=== PATIENT | female | born 1950 | race Caucasian/White ===

== ENCOUNTER 2025-06-14 14:08 | Emergency (ER) | payer OTHER, MEDICAID ==
[~2025-06-14] VITALS: Ht 157.5 cm; Wt 75.0 kg
[2025-06-14 14:15] VITALS: O2SAT 96
[2025-06-14] MEDS: FAMOTIDINE 20MG/2ML VIAL IV ONE (15:07)
[2025-06-14] MEDS: ONDANSETRON HCL 4MG/2ML INJ IV ONE (15:08)
[2025-06-14] MEDS: MAGNESIUM HYDROXIDE 400MG/5ML 30ML UDC PO ONE (15:08)
[2025-06-14] MEDS: SODIUM CHLORIDE 0.9% 1,000 ML IV ONE (15:08)
[2025-06-14 15:27] LABS: BASOPHILS % 0.8 % (0.0-2.0); EOSINOPHILS % 1.6 % (0.0-5.0); HEMATOCRIT. 35.7 % (36.0-48.0); HEMOGLOBIN. 12.3 g/dL (12.0-16.0); LYMPHOCYTES % 34.0 % (20.0-50.0); MEAN PLATELET VOLUME 9.6 fl (7.4-10.4); MONOCYTES % 6.8 % (2.0-8.0); NEUTROPHILS % 56.8 % (40.0-76.0); PLATELET 172 x1000/uL (130-400); RED BLOOD CELL COUNT 3.94 mill/uL (4.2-5.4); RED CELL DISTRIBUTION WIDTH 13.2 % (11.6-14.6)
[2025-06-14 15:46] LABS: CREATININE 0.7 mg/dL (0.6-1.0); UREA NITROGEN BLOOD 14 mg/dL (9-23)
[2025-06-14 15:47] LABS: ASPARTATE AMINOTRANSFERASE 37 IU/L (<34); TROPONIN I HIGH SENSITIVITY < 4 ng/L (3.0-34)
[2025-06-14 15:48] LABS: BILIRUBIN DIRECT 0.3 mg/dL (<=3.0); BILIRUBIN TOTAL 0.9 mg/dL (0.1-1.0); PROTEIN TOTAL 6.2 g/dL (6.0-8.3)
[2025-06-14 17:06] VITALS: BP 126/64; PULSE 61; RESP 10; TEMP 36.9; O2SAT 97
== END 2025-06-14 17:38 | disposition home or self-care (01) ==
LOC: ER 14:08
DX: K29.70 Gastritis, unspecified, without bleeding (principal); E11.9 Type 2 diabetes mellitus without complications; I10 Essential (primary) hypertension; Z88.0 Allergy status to penicillin
CPT/HCPCS: 99285; 96374; 71045; 96361; 96375; 80076; 80048; 83690; 85025; 84484; 36415; 93005; J1308; J2405